=== PATIENT | male | born 1995 | race Caucasian/White ===

== ENCOUNTER 2021-01-30 17:17 | Outpatient (REF) | payer BC, SELFPAY | END 2021-01-30 17:18 | disposition home or self-care (01) | LOC: HO.LNP 17:17 | PROVIDERS: Visit Provider Hospitalist | DX: Z20.822 Contact with and (suspected) exposure to COVID-19 (principal); B34.9 Viral infection, unspecified | CPT/HCPCS: U0003; U0005 ==